=== PATIENT | female | born 1980 | race Caucasian/White ===

== ENCOUNTER 2021-12-28 18:26 | Emergency (ER) | payer OTHER ==
[~2021-12-28 18:26] MED LIST: COLACE 100MG C100 MG PO; NAPROXEN 250 M250 MG PO; NORCO 5-325 TA1 EACH PO; OMEPRAZOLE20 M1 PO; VENTOLIN/PROVE0.5 ML INH; VISTARIL50 MG PO
[2021-12-28 19:35] LABS: HEMOGLOBIN 12.5 gm/dl (12.3-15.3); RED BLOOD COUNT 3.8 M/UL (4.00-5.10); WHITE BLOOD COUNT 2.9 K/UL (4.5-11.0)
[2021-12-28 20:33] LABS: BUN/CREATININE RATIO 13 (0-10)
[2021-12-29] MEDS ORDERED: ZOFRAN ODT 4 MG4 MG PO (00:03)
== END 2021-12-29 00:24 | disposition home or self-care (01) ==
LOC: ER1 18:26
PROVIDERS: Student in an Organized Health Care Education/Training Program
DX: U07.1 COVID-19 (principal); E87.6 Hypokalemia; F17.210 Nicotine dependence, cigarettes, uncomplicated; I51.9 Heart disease, unspecified
CPT/HCPCS: 0240U; 71045; 80053; 82550; 82553; 84484; 85025; 93005; 99284